=== PATIENT | male | born 1995 | race Caucasian/White ===

== ENCOUNTER 2016-12-03 16:37 | Emergency (ER) | payer SELFPAY ==
[~2016-12-03] VITALS: Wt 62.4 kg
[2016-12-03] MEDS ORDERED: LIDOCAINE 1% (MDV) 20 ML INJ SC ONE (17:00)
[2016-12-03] MEDS ORDERED: DIPHTH/TET/ACEL PERTUSS (ADULT) 0.5 ML VIAL IM* ONE (17:00)
--- NOTE | 2016-12-03 17:39 | ERD ---
ER Documentation Chief Complaint Date/Time DATE: 12/03/16 TIME: 17:36 Chief Complaint LAC ON FOREHEAD HPI Patient is a 21-year-old male who presents to the ED with a laceration to the right side of his forehead after sustaining an injury at work. 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 He denies blacking out, passing out or losing consciousness. He denies headache or dizziness. He denies blurry vision. Denies shortness of breath, chest pain or difficulty breathing. Patient is not up-to-date with his tetanus vaccine. No other complaints. ROS All systems reviewed and are negative except as per history of present illness. Allergies Allergies: Coded Allergies: No Known Allergy (Unverified , 12/03/16) PMhx/Soc History of Surgery: No Anesthesia Reaction: No Hx Neurological Disorder: No Hx Respiratory Disorders: No Hx Cardiac Disorders: No Hx Psychiatric Problems: No Hx Miscellaneous Medical Probl: No Hx Alcohol Use: No Hx Substance Use: No Hx Tobacco Use: No FmHx Family History: No coronary disease, No diabetes, No other Physical Exam Vitals Vital Signs Date Time Temp Pulse Resp B/P Pulse Ox O2 Delivery O2 Flow Rate FiO2 12/03/16 16:39 97.7 62 17 134/66 96 Physical Exam GENERAL: Well-developed, well-nourished male. Appears in no acute distress. HEAD: Normocephalic, atraumatic. 1 cm laceration to right forehead. No bleeding no hematoma. EYES: Pupils are equally reactive bilaterally. EOMs grossly intact. No conjunctival erythema. ENT: Moist mucous membranes. No uvula deviation. No kissing tonsils. No exudates. Extremities: Equal pulses bilaterally. No peripheral clubbing, cyanosis or edema. No unilateral leg swelling. NEUROLOGIC: Alert and oriented. Moving all four extremities. 5/5 strength in all extremities. Normal speech. Steady gait. Cranial nerves II through XII intact. SKIN: Normal color. Warm and dry. No rashes or lesions. Capillary refill < 2 seconds Results 24 hrs Current Medications Medications (Trade) Dose Ordered Sig/Jacob Route PRN Reason Start Time Stop Time Status Last Admin Dose Admin Lidocaine (Xylocaine 1% (Mdv) 20 ml) 20 ml ONCE ONCE SC 12/03/16 17:00 12/03/16 17:01 DC Diphtheria/ Tetanus/Acell Pertussis (Adacel) 0.5 ml ONCE ONCE IM* 12/03/16 17:00 12/03/16 17:01 DC 12/03/16 17:15 Procedures/MDM ER COURSE: I kept the patient and/or family informed of laboratory and diagnostic imaging results throughout the emergency room course. PROCEDURES: Laceration Repair by me: Anesthesia: None Location: right forehead Tendon/Joint/Nerves: No injury Foreign body: None detected after copious irrigation and exploration Technique: Tissue adhesive Complexity: No subcutaneous sutures/mucosal repair/edge excision Post Closure Length: 1 cm Patient's bleeding was easily controlled in the department and there is no indication of anemia. No evidence of compartment syndrome, neurologic injury, vascular injury, open joint, tendon laceration, or foreign body. Patient is appropriate for outpatient follow up. 48 hour wound check. Scar minimization instructions given. TETANUS given. no complications MEDICAL DECISION MAKING: This is a 21-year-old male who presents with laceration to his right forehead. Vital signs were reviewed. Patient is afebrile. Patient is not hypoxic. Patient is not toxic or ill-appearing. Patient has a superficial laceration that is 1 cm that can be closed with Dermabond. No tendon or bone is visible. No active bleeding. Low suspicion for necrotizing fasciitis, SJS, toxic epidermal necrolysis, Kawasaki, erythema multiforme, gangrene, scarlet fever, meningococcemia, sepsis, anaphylaxis, sepsis, deep space infection, or foreign body. Tetanus was given in the ED. Low suspicion for intracranial hemorrhage, meningitis, intracranial mass, concussion, temporal arteritis, stroke, elevated intracranial pressure, seizure. DISCHARGE: At this time, patient is stable for discharge and outpatient management with no new complaints during the ER course. Patient was sent home with instructions to return in 2 days for wound recheck. Note for work was also given to patient. Patient will be discharged home with instructions to recheck for new or worsening symptoms such as fever, nausea, weakness, LOC and to follow up with primary care in the next 1-2 days. Patient was advised to return to the ER for any new or worsening symptoms. Plan was discussed and patient and/or family understands and agrees. Home instructions were given. Departure Diagnosis: Primary Impression: Laceration Condition: Stable Patient Instructions: Laceration, Face (Skin Glue) Additional Instructions: Omar mack doctor MAANA y ashleigh raul SANCHEZ PARA DENTRO DE 1-2 KAMINSKI.Dgale a la secretaria que nosotros le instruimos hacer esta sanchez.Avise o llame si castillo condicin se empeora antes de la sanchez. Regresa aqui si peor o no mejor. ERASMO ZHU PA-C Dec 03, 2016 17:39
== END 2016-12-03 17:39 | disposition home or self-care (01) ==
LOC: FTE 16:37
DX: S01.81XA Laceration without foreign body of other part of head, initial encounter (principal); W22.8XXA Striking against or struck by other objects, initial encounter; Y92.196 Pool of other specified residential institution as the place of occurrence of the external cause; Z23 Encounter for immunization
CPT/HCPCS: 90471; 90715